=== PATIENT | female | born 1950 | race Caucasian/White ===

== ENCOUNTER 2025-04-28 11:55 | Inpatient (IN) | payer MEDICARE, OTHER ==
[~2025-04-28] VITALS: Ht 167.6 cm; Wt 78.0 kg
[2025-04-28] VITALS (7 sets, daily range): BP systolic 115–146; BP diastolic 67–74; PULSE 63–86; RESP 17–20; TEMP 98.3; O2SAT 89
[~2025-04-28 11:55] MED LIST: AMLO5TAB16 PO; ASPI-10 PO; ATOR10TA70 PO; HYDR-3964 PO; LISI20TA28 PO; METF-436 PO; METO25TA6 PO
--- NOTE | 2025-04-28 12:00 | ELECTROCARDIOGRAPH REPORT ---
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 Fidel Diop Measurements Intervals [place] Rate: 164 P: 0 OK: 0 QRS: -42 QRSD: 92 T: 132 QT: 304 QTc: 502 Interpretive Statements Atrial fibrillation with rapid V-rate Ventricular premature complex Left anterior fascicular block Abnormal R-wave progression, late transition LVH with secondary repolarization abnormality Baseline wander in lead(s) V2 Electronically Signed On 04-29-2025 6:34:[address] Fidel Diop Please click the below link to view image of tracing.
[2025-04-28] MEDS: diltiazem 5mg/ml 5ml inj. IV ONE (12:07)
[2025-04-28] MEDS: ondansetron/PF 4mg/2ml inj IV ONE ×2 (12:23→15:14)
[2025-04-28 12:24] LABS: BASOPHILS % (AUTO) 0.2 % (0-1); EOSINOPHILS % (AUTO) 0 % (0-6); HEMATOCRIT 46.8 % (35.0-45.0); HEMOGLOBIN 15.3 g/dl (12.0-16.0); LYMPHOCYTES % (AUTO) 5.7 % (21-51); MEAN CORPUSCULAR HGB CONC 32.7 g/dL (33.0-36.5); MEAN CORPUSCULAR VOLUME 94.6 FL (78-98); MEAN PLATELET VOLUME 10.4 FL (7.4-10.4); MONOCYTES # (AUTO) 0.6 X10'3 (0-0.9); MONOCYTES % (AUTO) 3.2 % (2-12); NEUTROPHILS # (AUTO) 15.8 X10'3 (1.8-7.7); NEUTROPHILS % (AUTO) 90.9 % (42-75); PLATELET COUNT 264 X10'3 (140-440); RED BLOOD COUNT 4.95 X10'6 (4.20-5.60); RED CELL DISTRIBUTION WIDTH 13.4 % (11.5-14.5); WHITE BLOOD COUNT 17.4 X10'3 (4.5-11.0)
[2025-04-28] MEDS: diltiazem-NS 100mg/100ml 100 ML IV SCH ×2 (12:35→19:45)
[2025-04-28 12:36] LABS: APTT 25 SECONDS (22-32); INR 1.1 INR; PROTHROMBIN TIME 11.4 SECONDS (9.0-12.0)
[2025-04-28] MEDS: normal saline 1000ml 1,000 ML IV ONE (12:36)
[2025-04-28 13:16] LABS: ALANINE AMINOTRANSFERASE 26 U/L (12-78); ALBUMIN 3.8 G/DL (3.4-5.0); ALBUMIN/GLOBULIN RATIO 0.8 (1.1-1.5); ALKALINE PHOSPHATASE 97 IU/L (46-116); ANION GAP 21 (8-16); ASPARTATE AMINO TRANSFERASE 27 U/L (10-37); BILIRUBIN,TOTAL 0.9 MG/DL (0.1-1.0); BLOOD UREA NITROGEN 25 MG/DL (7-18); BUN/CREATININE RATIO 23.1 (10.0-20.0); CALCIUM 9.4 MG/DL (8.5-10.1); CHLORIDE 102 MMOL/L (99-107); CREATININE 1.08 MG/DL (0.40-0.90); SODIUM 140 MMOL/L (135-145); TOTAL CARBON DIOXIDE 16.9 MMOL/L (24-32); TOTAL PROTEIN 8.5 G/DL (6.4-8.2); eCRCL 42 ML/MIN; eGFR 49 ML/MIN
[2025-04-28 13:17] LABS: POTASSIUM 4.1 MMOL/L (3.5-5.1)
[2025-04-28 13:20] LABS: GLUCOSE 506 MG/DL (70-104)
--- NOTE | 2025-04-28 13:31 | RADIOLOGY REPORT ---
DI CHEST,SINGLE VIEW, HISTORY: dizziness COMPARISON: CHEST,SINGLE VIEW on DOS: 03/10/21, CHEST,SINGLE VIEW on DOS: 03/09/21, CHEST,SINGLE VIEW o n DOS: 03/08/21 CHEST,SINGLE VIEW on DOS: 03/10/21, CHEST,SINGLE VIEW on DOS: 03/09/21, CHEST,SINGLE VIEW on DOS: TECHNICAL DATA: 1 view of the chest was obtained. FINDINGS: Lines and tubes: None Cardiomediastinal silhouette: normal Pulmonary vasculature: normal Lung expansion: normal Lung airspace: normal Lung interstitium: normal Pleura: normal Pneumothorax: no Bones: Unremarkable Other: no IMPRESSION: No acute intrathoracic abnormality. Suboptimal technique limits evaluation.
[2025-04-28 15:37] LABS: BILIRUBIN,URINE NEGATIVE (Neg); CLARITY,URINE CLEAR (Clear); COLOR,URINE YELLOW (Yellow); GLUCOSE, URINE >=1000 mg/dl (Neg); KETONES,URINE 40 mg/dl (Neg); LEUKOCYTE ESTERASE ,URINE NEGATIVE (Neg); NITRITES, URINE NEGATIVE (Neg); OCCULT BLOOD,URINE TRACE-INTACT (Neg); PH,URINE 5.5 (4.8-8.0); PROTEIN,URINE 30 mg/dl (Neg); UROBILINOGEN,URINE 0.2 E.U/dL (0.2-1.0)
[2025-04-28 15:48] LABS: UA COLLECTION TYPE NON-SPECIFIED
[2025-04-28 15:54] LABS: AMORPHOUS URATES 1+; BACTERIA,URINE NONE SEEN /HPF (Neg); RBC,URINE 0-2 /HPF (0-2); SQUAMOUS EPITHELIAL CELL,UR FEW /LPF (FEW); WBC,URINE 0-4 /HPF (0-4)
[2025-04-28] MEDS: insulin regular, human 10 units/0.1 ml syringe IV ONE (16:04)
[2025-04-28] MEDS: CefTRIAXone 2gm/D5W 50ml BAG 50 ML IV STA (16:05)
--- NOTE | 2025-04-28 16:32 | Physician Documentation ---
History of Present Illness ~ Chief Complaint: Rapid Heartbeat Stated Complaint: DIZZINESS Time Seen by MD: 11:58 Primary Medical Doctor: NONE Mode of Arrival: EMS HPI Patient is here for generalized weakness and dizziness this morning. Her has been ill so she has not been able to go to the pharmacy to refill her meds. She has a history of a. fib and diabetes. No fever. +nausea but no abdominal pain. Denies chest pain. Medication Reconciliation Allergies: Coded Allergies: No Known Allergies (Unverified , 02/12/21) Scheduled Amlodipine Besylate (Amlodipine Besylate), 1 TAB PO BID, (Reported) Aspirin (Aspirin), 1 TAB PO DAILY, (Reported) Atorvastatin Calcium (Atorvastatin Calcium), 1 TAB PO DAILY, (Reported) Lisinopril (Lisinopril), 1 TAB PO DAILY, (Reported) Metformin Hcl (Metformin Hcl), 2 TAB PO BID, (Reported) Metoprolol Tartrate (Metoprolol Tartrate), 1 TAB PO BID, (Reported) Scheduled PRN Hydrocodone Bit/Acetaminophen (Hydrocodon-Acetaminophen 5-325), 1 TAB PO Q6H PRN for moderate or severe pain 4-10 Past Medical History Past Medical History: Atrial Fibrillation, Coronary Artery Disease, High Cholesterol, Hypertension, Myocardial Infarction, Diabetes Past Surgical History: coronary bypass surgery Smoking Status: Never smoker Drug Use: none Lives In: Home Physical Exam Vital Signs: Heart Rate: 98, Respiratory Rate: 24, BP: 159/81, Pulse Oximetry: 90, Weight: 78.000 Oxygen Flow Rate: 0 Physical Exam General: Awake and Alert, no acute distress. HEENT: Conjunctiva pink, Sclera clear, Mucus Membranes moist. Neck: Supple without masses and tenderness. Resp: Unlabored. Lungs clear to auscultation bilaterally. Heart: tachycardic and irregular. Abdomen: Soft and non tender no organomegaly Extremities: No cyanosis,clubbing or edema. Skin: Warm and Dry. Neuro: GCS 15; no focal deficits Progress Results/Orders Results/Orders Orders - TRINO RONDON MD Chest,Single View (04/28/25 11:58) Diltiazem-Ns 100mg/100ml (Cardizem-Ns 10 (04/28/25 12:20) Culture Blood (04/28/25 14:01) Lactic,2hr (04/28/25 15:49) Completed Orders - TRINO RONDON MD Electrocardiogram (04/28/25 ) Cbc/Diff (04/28/25 11:58) CMP (04/28/25 11:58) Hs Troponin I W Calculations (04/28/25 11:58) Chest,Single View (04/28/25 11:58) PTT (04/28/25 11:58) Pt Inr (04/28/25 11:58) Diltiazem Iv (Cardizem Iv 5mg/Ml Inj.) (04/28/25 12:00) Ondansetron Inj. (Zofran 4mg/2ml Vial) (04/28/25 12:20) Normal Saline 1000ml (Sodium Chloride 10 (04/28/25 12:20) Lacticsepsis (04/28/25 14:01) Ondansetron Inj. (Zofran 4mg/2ml Vial) (04/28/25 15:05) Ceftriaxone 2gm/D5w 50ml Bag (Rocephin 2 (04/28/25 15:31) Insulin Regular, Human (Humulin R 10 Uni (04/28/25 15:35) Ua W/Microscopic, Cult If Ind (04/28/25 14:55) Medications Received in ER Medications (Trade) Dose Ordered Sig/Jass Route PRN Reason Start Time Stop Time Status Last Admin Dose Admin (Cardizem IV 5mg/ ml inj.) 10 mg ONCE ONCE IV 04/28/25 12:00 04/28/25 12:01 DC 04/28/25 12:07 10 MG Diltiazem HCl 100 ml @ 5 mls/hr Q20H IV 04/28/25 12:20 04/28/25 12:35 5 MLS/HR (Zofran 4mg/2ml vial) 4 mg ONCE ONCE IV 04/28/25 12:20 04/28/25 12:21 DC 04/28/25 12:23 4 MG Sodium Chloride 1,000 ml @ 1,000 mls/hr ONCE ONCE IV 04/28/25 12:20 04/28/25 13:19 DC 04/28/25 12:36 1,000 MLS/HR (Zofran 4mg/2ml vial) 4 mg ONCE ONCE IV 04/28/25 15:05 04/28/25 15:06 DC 04/28/25 15:14 4 MG Ceftriaxone Sodium/Dextrose 50 ml @ 100 mls/hr ONCE STAT IV 04/28/25 15:31 04/28/25 16:00 DC 04/28/25 16:05 100 MLS/HR (HumuLIN R 10 units per 0.1 ML syringe) 10 units ONCE ONCE IV 04/28/25 15:35 04/28/25 15:36 DC 04/28/25 16:04 10 UNITS Vital Signs 04/28/25 04/28/25 04/28/25 04/28/25 11:58 12:07 12:35 12:45 Pulse 168 158 125 112 Resp 24 19 B/P (MAP) 168/121 168/127 181/82 191/92 (125) Pulse Ox 97 94 04/28/25 04/28/25 04/28/25 04/28/25 13:00 13:20 13:32 13:40 Pulse 124 103 123 Resp 25 B/P (MAP) 174/92 175/90 (118) 178/90 Pulse Ox 94 O2 Flow Rate 0 04/28/25 04/28/25 14:01 15:22 Pulse 106 98 Resp 28 24 B/P (MAP) 144/85 (104) 159/81 (107) Pulse Ox 93 90 Laboratory Tests Test 04/28/25 12:08 04/28/25 14:55 04/28/25 16:00 White Blood Count 17.4 H Red Blood Count 4.95 Hemoglobin 15.3 Hematocrit 46.8 H Mean Corpuscular Volume 94.6 Mean Corpuscular Hemoglobin 31.0 Mean Corpuscular Hemoglobin Concent 32.7 L Red Cell Distribution Width 13.4 Platelet Count 264 Mean Platelet Volume 10.4 Neutrophils (%) (Auto) 90.9 H Lymphocytes (%) (Auto) 5.7 L Monocytes (%) (Auto) 3.2 Eosinophils (%) (Auto) 0 Basophils (%) (Auto) 0.2 Neutrophils # (Auto) 15.8 H Lymphocytes # (Auto) 1.0 L Monocytes # (Auto) 0.6 Eosinophils # (Auto) 0.0 Basophils # (Auto) 0.0 CBC Comment Prothrombin Time 11.4 INR International Normalized Ratio 1.1 Activated Partial Thromboplast Time 25 Coagulation Comments Sodium Level 140 Potassium Level 4.1 Chloride Level 102 Carbon Dioxide Level 16.9 L Anion Gap 21 H Blood Urea Nitrogen 25 H Creatinine 1.08 H Estimated GFR/1.73 m2 49 BUN/Creatinine Ratio 23.1 H Glucose Level 506 *H Lactic Acid Level 3.3 H Calcium Level 9.4 Total Bilirubin 0.9 Aspartate Amino Transf (AST/SGOT) 27 Alanine Aminotransferase (ALT/SGPT) 26 Alkaline Phosphatase 97 Troponin I High Sensitivity 30 Total Protein 8.5 H Albumin 3.8 Globulin 4.7 H Albumin/Globulin Ratio 0.8 L Chemistry Comments Urine Specimen Description Non-specified Urine Color Yellow Urine Clarity Clear Urine pH 5.5 Urine Specific Warner 1.020 Urine Protein 30 H Urine Glucose (UA) >=1000 H Urine Ketones 40 H Urine Occult Blood Trace-intact Urine Nitrite Negative Urine Bilirubin Negative Urine Urobilinogen 0.2 Urine Leukocyte Esterase Negative Urine RBC 0-2 Urine WBC 0-4 Urine Squamous Epithelial Cells Few Urine Amorphous Urates 1+ Urine Bacteria None seen Urine Culture Indicated Not ind Volume Urine Centrifuged 10 ml Urine Comment Glucometer 404 *H EKG/XRAY/CT/US/VASC/MRI EKG : Intepreting Monitor?: Yes EKG Rate: 164 EKG: a fib, nonspecific ST T wave chg, QRS EKG Blocks: none Collison: normal Hypertrophy: LVH Medical Decision Making Findings Patient presents with a fib with RVR HR 160's. She was given diltiazem 10 mg bolus and started on an infusion. Her rate is under control. She was given 1 L bolus. She is hyperglycemic boarderline DKA bicarb 16.9 and Anion gap is 21. She was given 10 units of insulin IV. Chest x-ray is clear urinalysis does not show signs of infection. I suspect what happened as she has been taking her medications that caused hyperglycemia dehydration and AFib with RVR. Those things have stabilized in place she will be admitted. Departure Disposition: ADMITTED INPATIENT Admitted to Inpatient Unit: to hospitalist Admission Level of Care: Med/Surg with Tele Impression: Primary Impression: Rapid atrial fibrillation Additional Impressions: Hyperglycemia Dehydration Condition: Stable Referrals: NO PRIMARY CARE PROVIDER (PCP) Education Educated: Patient Educated regarding: diagnosis, treatment Signature Scribe Signature: no scribe Attestation: no scribe TRINO RONDON MD Apr 28, 2025 16:32
[2025-04-28] MEDS ORDERED: potassium Cl 20 mEq SR tablet PO PRN ×2 (16:55)
[2025-04-28] MEDS ORDERED: magnesium sulf-water 2g/50mL 50 ML IV PRN (16:55)
[2025-04-28] MEDS ORDERED: magnesium sulf-water 4G/100mL 100 ML IV PRN (16:55)
[2025-04-28] MEDS ORDERED: potassium Cl 40MEQ/1/2NS 520ml 520 ML IV PRN (16:55)
[2025-04-28] MEDS ORDERED: mag hydrox/Alum hydrox/simeth 30ml oral suspension PO PRN (16:55)
[2025-04-28] MEDS ORDERED: acetaminophen 325mg tablet PO PRN (16:55)
[2025-04-28] MEDS ORDERED: magnesium hydroxide 30ml (MOM) UD suspension PO PRN (16:55)
[2025-04-28] MEDS ORDERED: magnesium Cl slow-release 64mg tablet PO PRN (16:55)
[2025-04-28 17:58] LABS: ABG HCO3 20.8 mmol/L (21.0-28.0); ABG OXYGEN SATURATION 95.2 % (94.0-98.0); ABG PCO2 (T) 37.3 mmHg (32.0-45.0); ABG PH (T) 7.364 (7.350-7.450); ABG PO2 (T) 81.6 mmHg (83.0-108.0); ALLEN'S TEST POSITIVE; FCOHb 0.4 % (0.5-1.5); FHHb 4.8 % (0.0-5.0); FMetHb 0.1 % (0.0-1.5); FO2Hb 94.7 % (94.0-98.0); MODE NASAL CANNULA; PATIENT TEMPERATURE 37.2; TOTAL HEMOGLOBIN 14.9 G/dl (12.0-16.0)
[2025-04-28 18:04] LABS: OSMOLALITY 332 MOSM/K (280-300)
[2025-04-28 18:22] LABS: HEMOGLOBIN A1C 11.4 % (4.5-6.2)
--- NOTE | 2025-04-28 18:49 | HISTORY AND PHYSICAL-Residence ---
History & Physical Providers to Resident Creating Document: ALFREDO SMITH, RES ~ History of Present Illness Primary Medical Doctor: [facility]. Cloth Shrinker: Dr. Naik Reason for Admit\Complaint: Dizziness, nausea, vomiting History of Present Illness [facility]. Cloth Shrinker: Dr. Naik 75-year-old female patient with past medical history of diabetes mellitus, hypertension, dyslipidemia came to the hospital with chief complaint of dizziness, nausea, vomiting. The patient reports that she was feeling weird last night reason for which he decided to not eat dinner. After she woke up this morning she was having some dizziness, nausea with vomiting for five episodes, as the patient did not need she reports the vomit as a yellowish liquid. Associated to these symptoms she also was feeling some weakness stating that she was not able to get up. She also endorses that she was missing her medication for at least three months because she was not able to arrange her cotton picker medication which is normally delivered at home. Neither her nor her are able to drive to cotton picker her medications. The patient currently denies any chest pain, shortness of breath, palpitations, urinary or intestinal symptoms. Allergies: Coded Allergies: No Known Allergies (Unverified , 02/12/21) Home Medications Home Medications Active Hydrocodon-Acetaminophen 5-325 (Hydrocodone Bit/Acetaminophen) 1 Each Tablet 1 Tab PO Q6H PRN Reported Aspirin 325 Mg Tablet 1 Tab PO DAILY 30 Days Metoprolol Tartrate 25 Mg Tablet 1 Tab PO BID Atorvastatin Calcium 10 Mg Tablet 1 Tab PO DAILY Amlodipine Besylate 5 Mg Tablet 1 Tab PO BID Metformin Hcl 500 Mg Tablet 2 Tab PO BID Lisinopril 20 Mg Tablet 1 Tab PO DAILY Past Medical History Past Medical History Diabetes mellitus taking metformin, not being able to take for the last three months because of difficulty for picking up her medication. Hypertension taking amlodipine. Dyslipidemia taking atorvastatin. CAD S/CABG on 2020 currently on aspirin. Past Surgical History Surgical History Comment CAD S/P CABG in 2020. Two C-sections. Hysterectomy. 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 HEENT: Conjunctive are pink, sclerae clear, no icterus, pupil is equal in both sides, reactive to light, no ear discharge, no pharyngeal erythema or an edema. Neck: Supple, no JVD, no lymphadenopathy and thyromegaly. Chest: Equal air entry on both lungs, no additional sounds no rhonchi no wheezing at the moment. Cardiovascular: S1-S2 irregular rate and rhythm, no gallops, no rubs, no murmurs Abdomen: No visible peristalsis, Bowel sounds present on auscultation, soft, nontender, no guarding, no rigidity Extremities: No obvious deformities, no pitting edema bilaterally, capillary refill intact, peripheral pulsations are intact on both sides Central Nervous System: No focal neurological deficits, no motor or sensory weakness in all 4 extremities, could move all 4 extremities, 2+ deep tendon reflexes, negative Babinski. Musculoskeletal: No joint swelling, deformities, inflammations, and no scoliosis and back tenderness Skin: Warm and dry, presence of signs from scratching in her back, redness at the level of the sacrum. Diagnostic Data Last Recorded Lab Results: 04/28/25 1208 04/28/25 1208 Diagnostic Data: Laboratory Tests Test 04/28/25 12:08 Prothrombin Time 11.4 SECONDS (9.0-12.0) INR International Normalized Ratio 1.1 INR Activated Partial Thromboplast Time 25 SECONDS (22-32) Coagulation Comments Advance Care Planning Advanced Care plannin - 30 Minutes (I spent a total of 17 minutes on reviewing various resuscitative measures/ACP with the patient at the time of admission. The patient has decided on a full code status.) Additional Plan Assessment and plan: 75-year-old female patient came to the hospital with chief complaint of weakness, nausea and vomiting. Diabetic ketoacidosis: Metabolic acidosis with elevated anion gap: Leukocytosis: The patient came to the hospital with chief complaint of weakness, nausea and vomiting. Glucose levels 506, hemoglobin A1c 11.4. WBC 17.4 likely reactive. Urinalysis positive for ketones. Bicarb around 16.9. The patient was missing medication for her diabetes because of difficulty for picking up her medication. Ringer lactate at 100 mL/hour. Hyperglycemia/hypoglycemia protocol in place. Lantus 16 units HS. Medium dose sliding scale short-acting insulin on place. 75 carb controlled diet. Ondansetron 4 mg IV q.4h PRN for nausea. New AFib with RVR: Chads Vasc score: 4 Upon arrival to the hospital the patient was evidenced with heart rate of 160s. EKG: Irregular rhythm, absence of P waves. Left axis deviation. Atrial fibrillation with heart rate over 164. Follow-up echocardiogram. The patient is currently on Cardizem drip. Given one dose of metoprolol succinate 25 mg. Decreased rate of Cardizem drip to 2.5 mL/hour. Cardizem drip to be stopped within 2 hours. Eliquis 5 mg b.i.d. in due to creatinine less than 1.5, age less than 80 and weight >60 kg Acute kidney injury likely secondary to renal tubular stasis: Creatinine 1.08, GFR 49, BUN/creatinine ratio 23.1. Follow-up urine lytes. Ringer lactate at 100 mL/hour. Hypertension: Current blood pressure within reference range. Starting metoprolol succinate 25 mg daily. Dyslipidemia: Follow-up lipid panel. We will continue atorvastatin after med reconciliation. Code status: Full code DVT prophylaxis: The patient is currently on Eliquis. Analgesia/sedation: None Line/tube: PIV GI prophylaxis: Protonix Nutrition: 75 carb controlled diet PT: Ordered Prognosis: Guarded Disposition: The patient will be admitted to PCU with telemetry. Alfredo Lamb Internal Medicine Resident [facility] Date of Service: Apr 28, 2025 Billing Provider: THOMAS SRINIVASAN MD Common Visit Codes: [id number] INP/OBS CARE (HIGH) Secondary Visit Codes: [id number] CARE PLAN 30 MINUTES ALFREDO SMITH, RES Apr 28, 2025 18:49 THOMAS SRINIVASAN MD Apr 30, 2025 21:35
[2025-04-28] MEDS ORDERED: dextrose 50%-water 50ml dispensing syringe IV PRN ×2 (18:55)
[2025-04-28] MEDS ORDERED: glucagon, human recombinant 1mg kit SUBCUT PRN (18:55)
[2025-04-28] MEDS ORDERED: DEXTROSE 15 GM of carb/4 tabs (each vial/BOTTLE has 4 tablets) PO PRN ×2 (18:55)
[2025-04-28 19:02] LABS: THYROID STIMULATING HORMONE 3.49 ulU/ml (0.34-4.50)
[2025-04-28] MEDS: docusate sod 100mg capsule PO SCH (19:17)
[2025-04-28] MEDS: K and/or MAG REPLACEMENT MC SCH (19:17)
[2025-04-28 19:42] LABS: CHOL/HDL RATIO 3.4 (0.00-4.99); CHOLESTEROL 182 MG/DL (0-200); HDL CHOLESTEROL 53 MG/DL (35-60); LDL CHOLESTEROL 98 MG/DL (50-100); TRIGLYCERIDES 122 MG/DL (20-135)
[2025-04-28] MEDS: apixaban 5mg tablet PO SCH (19:44)
[2025-04-28] MEDS: metoprolol succinate 25mg (24-HOUR) SR. Tablet PO SCH (19:44)
[2025-04-28] MEDS: ringers solution, lacted 1,000 ML IV SCH (19:48)
[2025-04-28] MEDS: insulin glargine (Lantus) pen - multi-dose SQ SCH (21:32)
[2025-04-28] MEDS: INSULIN LISPRO 100 UNIT/ML INSULN.PEN MULTI-DOSE SQ SCH (21:33)
[2025-04-29] VITALS (14 sets, daily range): BP systolic 107–136; BP diastolic 60–95; PULSE 68–100; RESP 16–24; TEMP 97.1–97.7; O2SAT 93–98
[2025-04-29 05:27] LABS: BASOPHILS # (AUTO) 0.1 X10'3 (0-0.2); BASOPHILS % (AUTO) 0.6 % (0-1); EOSINOPHILS % (AUTO) 0 % (0-6); HEMATOCRIT 41.7 % (35.0-45.0); HEMOGLOBIN 13.5 g/dl (12.0-16.0); LYMPHOCYTES # (AUTO) 1.6 X10'3 (1.1-4.8); LYMPHOCYTES % (AUTO) 10.3 % (21-51); MEAN CORPUSCULAR HEMOGLOBIN 30.6 PG (27.0-31.0); MEAN CORPUSCULAR HGB CONC 32.3 g/dL (33.0-36.5); MEAN CORPUSCULAR VOLUME 94.5 FL (78-98); MEAN PLATELET VOLUME 9.9 FL (7.4-10.4); MONOCYTES # (AUTO) 1.1 X10'3 (0-0.9); MONOCYTES % (AUTO) 7.3 % (2-12); NEUTROPHILS # (AUTO) 12.6 X10'3 (1.8-7.7); NEUTROPHILS % (AUTO) 81.8 % (42-75); PLATELET COUNT 250 X10'3 (140-440); RED BLOOD COUNT 4.41 X10'6 (4.20-5.60); RED CELL DISTRIBUTION WIDTH 13.3 % (11.5-14.5); WHITE BLOOD COUNT 15.4 X10'3 (4.5-11.0)
[2025-04-29 05:43] LABS: ALANINE AMINOTRANSFERASE 35 U/L (12-78); ALBUMIN 3.2 G/DL (3.4-5.0); ALBUMIN/GLOBULIN RATIO 0.8 (1.1-1.5); ALKALINE PHOSPHATASE 96 IU/L (46-116); ANION GAP 13 (8-16); ASPARTATE AMINO TRANSFERASE 32 U/L (10-37); BILIRUBIN,TOTAL 0.6 MG/DL (0.1-1.0); BLOOD UREA NITROGEN 26 MG/DL (7-18); CALCIUM 8.5 MG/DL (8.5-10.1); CHLORIDE 106 MMOL/L (99-107); CREATININE 1.13 MG/DL (0.40-0.90); GLUCOSE 293 MG/DL (70-104); SODIUM 143 MMOL/L (135-145); TOTAL CARBON DIOXIDE 23.8 MMOL/L (24-32); TOTAL PROTEIN 7.3 G/DL (6.4-8.2); eCRCL 40 ML/MIN; eGFR 47 ML/MIN
[2025-04-29] MEDS: pantoprazole 40mg Tablet.DR PO SCH (08:27)
[2025-04-29 11:21] LABS: CHOL/HDL RATIO 3.4 (0.00-4.99); CHOLESTEROL 192 MG/DL (0-200); HDL CHOLESTEROL 57 MG/DL (35-60); LDL CHOLESTEROL 106 MG/DL (50-100); TRIGLYCERIDES 127 MG/DL (20-135)
--- NOTE | 2025-04-29 14:33 | VASCULAR REPORT ---
Indication: Dizziness Technique: Real-time ultrasound images of the neck vessels with chaudhari-scale, color and wave Doppler we re obtained. Comparison: None Findings: There is mild to moderate atherosclerotic plaque bilaterally. This is most pronounced in the left ca rotid bulb region. The following peak systolic velocities were recorded in cm/sec: Right internal carotid: 41 Right common carotid: 44 Right external carotid: 87 Right internal/common carotid ratio: 0.9 Left internal carotid: 73 Left common carotid: 55 Left external carotid: 73 Left internal/common carotid ratio: 1.5 Right vertebral artery: Patent with normal antegrade direction of flow. Left vertebral artery: Patent with normal antegrade direction of flow. Impression: 1. No hemodynamically significant stenosis by velocity criteria. 2. [id number]-[id number] atherosclerotic plaque most pronounced within the left carotid bulb.
--- NOTE | 2025-04-29 14:52 | PROGRESS NOTE- Residence ---
Progress Note - Resident Providers to CC Resident Creating Document: ALFREDO SMITH, DEMI ~ Antibiotic Timeout Antibiotic Ordered?: No Subjective The patient has been evaluated at the bedside. Patient reports improvement of nausea, vomiting and dizziness. Objective Vital Signs Date Time Temp Pulse Resp B/P (MAP) Pulse Ox O2 Delivery O2 Flow Rate FiO2 04/29/25 06:30 91 04/29/25 06:00 97.7 24 115/67 (83) 93 Nasal Cannula 3.0 Physical exam: General: Well alert, well oriented, not confused, not agitated, not in acute distress, well cooperated during the physical. HEENT: Conjunctive are pink, sclerae clear, no icterus, pupil is equal in both sides, reactive to light, no ear discharge, no pharyngeal erythema or an edema. Neck: Supple, no JVD, no lymphadenopathy and thyromegaly. Chest: Equal air entry on both lungs, no additional sounds no rhonchi no wheezing at the moment. Cardiovascular: S1-S2 irregular rate and rhythm, no gallops, no rubs, no murmurs Abdomen: No visible peristalsis, Bowel sounds present on auscultation, soft, nontender, no guarding, no rigidity Extremities: No obvious deformities, no pitting edema bilaterally, capillary refill intact, peripheral pulsations are intact on both sides Central Nervous System: No focal neurological deficits, no motor or sensory weakness in all 4 extremities, could move all 4 extremities, 2+ deep tendon reflexes, negative Babinski. Musculoskeletal: No joint swelling, deformities, inflammations, and no scoliosis and back tenderness Skin: Warm and dry, presence of signs from scratching in her back, redness at the level of the sacrum. Result Diagram: 04/29/25 0454 04/29/25 0454 Coagulation Studies Laboratory Tests Test 04/28/25 12:08 Prothrombin Time 11.4 SECONDS (9.0-12.0) INR International Normalized Ratio 1.1 INR Activated Partial Thromboplast Time 25 SECONDS (22-32) Coagulation Comments Assessment Assessment 75-year-old female patient came to the hospital with chief complaint of weakness, nausea and vomiting. Plan Plan Diabetic ketoacidosis: Metabolic acidosis with elevated anion gap: Leukocytosis: The patient came to the hospital with chief complaint of weakness, nausea and vomiting. Glucose levels 506, hemoglobin A1c 11.4. WBC 17.4 likely reactive. Urinalysis positive for ketones. Bicarb around 16.9. The patient was missing medication for her diabetes because of difficulty for picking up her medication. Ringer lactate at 100 mL/hour. Hyperglycemia/hypoglycemia protocol in place. Lantus 16 units HS. Medium dose sliding scale short-acting insulin on place. 75 carb controlled diet. Ondansetron 4 mg IV q.4h PRN for nausea. 04/29/2025: Glucose levels improved, anion gap close to normal, bicarb levels improved. Increase lantus 20 HS. continue sliding scale short acting insulin. Leukocytes levels trending down. order carotid ultrasound and ct scan of the head. New AFib with RVR: Chads Vasc score: 4 Upon arrival to the hospital the patient was evidenced with heart rate of 160s. EKG: Irregular rhythm, absence of P waves. Left axis deviation. Atrial fibrillation with heart rate over 164. Follow-up echocardiogram. The patient is currently on Cardizem drip. Given one dose of metoprolol succinate 25 mg. Decreased rate of Cardizem drip to 2.5 mL/hour. Cardizem drip to be stopped within 2 hours. Eliquis 5 mg b.i.d. in due to creatinine less than 1.5, age less than 80 and weight >60 kg 04/29/2025: HR within reference range. stopped cardizem drip. Metoprolol succinate 25 mg daily. Continue eliquis 5 mg B.I.D. Acute kidney injury likely secondary to renal tubular stasis: Creatinine 1.08, GFR 49, BUN/creatinine ratio 23.1. Follow-up urine lytes. Ringer lactate at 100 mL/hour. Hypertension: Current blood pressure within reference range. Starting metoprolol succinate 25 mg daily. Dyslipidemia: Follow-up lipid panel. We will continue atorvastatin after med reconciliation. Code status: Full code DVT prophylaxis: The patient is currently on Eliquis. Analgesia/sedation: None Line/tube: PIV GI prophylaxis: Protonix Nutrition: 75 carb controlled diet PT: Ordered Prognosis: Guarded Disposition: We will continue medical management. Anticipated discharge tomorrow. Alfredo Lamb Internal Medicine Resident [facility] Date of Service: Apr 29, 2025 Billing Provider: THOMAS SRINIVASAN MD Common Visit Codes: [id number] INP/OBS CARE(HIGH) ALFREDO SMITH, RES Apr 29, 2025 14:52 THOMAS SRINIVASAN MD Apr 30, 2025 21:34
[2025-04-29] MEDS: ondansetron/PF 4mg/2ml inj IV PRN (15:22)
--- NOTE | 2025-04-29 15:55 | RADIOLOGY REPORT ---
CT CT HEAD Indication: dizziness EXAM DATE: 04/29/2025 03:28 PM COMPARISON: None TECHNIQUE: CT of the head without intravenous contrast. RADIATION DOSE: CTDIvol: 59 mGy, DLP: 1075 mGy*cm FINDINGS: There is no intracranial hemorrhage. There is no extra-axial fluid, mass, mass effect or midline shif t. The ventricles are midline and normal in size. Basilar cisterns are patent. There are iakz-go-itiy rate periventricular and subcortical white matter chronic microvascular ischemic changes. Mild globa l cerebral volume loss. The paranasal sinuses and mastoids are well-pneumatized. Imaged portion of the orbits are unremarkabl e. IMPRESSION: 1. No intracranial hemorrhage or mass effect. Bxut-vq-bhtydicz chronic 2. Microvascular ischemic changes. 3. Mild global cerebral volume loss.
[2025-04-29] MEDS: INSULIN LISPRO 100 UNIT/ML INSULN.PEN MULTI-DOSE SQ SCH (17:47)
--- NOTE | 2025-04-29 18:42 | CARDIOLOGY REPORT ---
APPROVED REPORT EXAM: Comprehensive 2D, Doppler, and color-flow Echocardiogram. Patient Location: 3028 Blood Pressure: 128/69 mmHg Heart Rate: 77 bpm Indications Arrhythmia Dizziness HX of Coronary Artery DIsease STEMI CABG x 4 Atrial Fibrillation Hypertension Diabetes SALES EXEC: Syeda Naik MD [employer] ECHO/RM: 02/14/21, [facility], HD, EF: 55-60; Steven/MR 2D Dimensions LA Diam4.0 cm IVSd 1.0 (0.7-1.1cm) LVDd 4.5 cm PWd 1.1 (0.7-1.1cm) IVSs 1.5 (0.8-1.2cm) LVDs 3.1 (2.5-4.0cm) PWs 1.6 (0.8-1.2cm) LVOT Diameter 1.97 (1.8-2.4cm) LVEF(%) 57.6 (>50%) Ao Asc Diam.3.45 cm IVC 23.63 mmFS (%) 30.2 % SV 52.8 ml CO 5.2 L/min M-Mode Dimensions Aortic Root 3.48 (2.2-3.7cm) Aortic Cusp Exc 1.46 (1.5-2.0cm) MV EPSS 1.3 (<0.5cm) Aortic Valve AoV Peak Amari. 134.7 cm/s AoV VTI 20.2 cm AO Peak GR. 7.3 mmHg AO Mean GR. 4 mmHg LVOT VTI 13.45 cm LVOT Peak Amari. 77.5 cm/s STEPHANIE(VTI)/BSA 2.04 cm2/m2 STEPHANIE (VTI) 2.04 cm2 AI P 1/2 Time 616 ms Tricuspid Valve TR P. Velocity 351 cm/s RAP ESTIMATE 10 mmHg TR Peak Gr. 49 mmHg RVSP 59 mmHg LEFT VENTRICLE Normal LV size and wall thickness. Overall systolic function is normal. LVEF is 55-60%. RIGHT VENTRICLE Right ventricle appears mildly dilated. ATRIA Left atrium is mildly dilated. AORTIC VALVE Trileaflet AV appears mildly sclerotic without stenosis. Trace insufficiency. MITRAL VALVE Mild mitral annular calcification without stenosis. Moderate regurgitation. TRICUSPID VALVE The tricuspid valve is normal in structure with mild regurgitation. PULMONIC VALVE The pulmonary valve is normal in structure with trace insufficiency. GREAT VESSELS The aortic root is normal in size. The ascending aorta is normal in size. IVC is dilated and collapse s less than 50% with inspiration. PERICARDIUM Normal pericardium. No effusion. Other Information Study Quality: Adequate Conclusion Normal LV size and wall thickness. Overall systolic function is normal. LVEF is 55-60%. Right ventricle appears mildly dilated. Left atrium is mildly dilated. Trileaflet AV appears mildly sclerotic without stenosis. Trace insufficiency. Mild mitral annular calcification without stenosis. Moderate regurgitation. The tricuspid valve is normal in structure with mild regurgitation. The pulmonary valve is normal in structure with trace insufficiency. Normal pericardium. No effusion.
[2025-04-29] MEDS: insulin glargine (Lantus) pen - multi-dose SQ SCH (21:50)
[2025-04-30] VITALS (9 sets, daily range): BP systolic 124–131; BP diastolic 43–95; PULSE 72–102; RESP 12–26; TEMP 97–97.8; O2SAT 91–98
[2025-04-30 07:11] LABS: BASOPHILS % (AUTO) 0.2 % (0-1); EOSINOPHILS % (AUTO) 0 % (0-6); HEMATOCRIT 42.4 % (35.0-45.0); LYMPHOCYTES # (AUTO) 2.4 X10'3 (1.1-4.8); LYMPHOCYTES % (AUTO) 13.6 % (21-51); MEAN CORPUSCULAR HEMOGLOBIN 30.7 PG (27.0-31.0); MEAN CORPUSCULAR HGB CONC 32.9 g/dL (33.0-36.5); MEAN CORPUSCULAR VOLUME 93.2 FL (78-98); MEAN PLATELET VOLUME 10.4 FL (7.4-10.4); MONOCYTES # (AUTO) 1.1 X10'3 (0-0.9); MONOCYTES % (AUTO) 6.5 % (2-12); NEUTROPHILS # (AUTO) 13.8 X10'3 (1.8-7.7); NEUTROPHILS % (AUTO) 79.7 % (42-75); PLATELET COUNT 229 X10'3 (140-440); RED BLOOD COUNT 4.55 X10'6 (4.20-5.60); WHITE BLOOD COUNT 17.4 X10'3 (4.5-11.0)
[2025-04-30 07:57] LABS: ALANINE AMINOTRANSFERASE 124 U/L (12-78); ALBUMIN 2.9 G/DL (3.4-5.0); ALBUMIN/GLOBULIN RATIO 0.8 (1.1-1.5); ALKALINE PHOSPHATASE 118 IU/L (46-116); ANION GAP 12 (8-16); ASPARTATE AMINO TRANSFERASE 117 U/L (10-37); BILIRUBIN,TOTAL 0.7 MG/DL (0.1-1.0); BLOOD UREA NITROGEN 33 MG/DL (7-18); BUN/CREATININE RATIO 39.8 (10.0-20.0); CALCIUM 8.3 MG/DL (8.5-10.1); CHLORIDE 106 MMOL/L (99-107); CREATININE 0.83 MG/DL (0.40-0.90); GLUCOSE 159 MG/DL (70-104); MAGNESIUM 1.9 MG/DL (1.5-2.4); POTASSIUM 3.9 MMOL/L (3.5-5.1); SODIUM 141 MMOL/L (135-145); TOTAL CARBON DIOXIDE 23.3 MMOL/L (24-32); TOTAL PROTEIN 6.4 G/DL (6.4-8.2); eCRCL 55 ML/MIN; eGFR 67 ML/MIN
[2025-04-30] MEDS: metoclopramide 5 mg/ml inj IV PRN (16:36)
--- NOTE | 2025-04-30 18:26 | PROGRESS NOTE- Residence ---
Progress Note - Resident Providers to CC Resident Creating Document: ALFREDO SMITH, DEMI ~ Antibiotic Timeout Antibiotic Ordered?: No Subjective The patient has been evaluated at the bedside. The patient is still reports nausea. Objective Vital Signs Date Time Temp Pulse Resp B/P (MAP) Pulse Ox O2 Delivery O2 Flow Rate FiO2 04/30/25 12:00 97.4 87 26 128/95 (106) 96 Room Air 04/29/25 06:00 3.0 Physical exam: General: Well alert, well oriented, not confused, not agitated, not in acute distress, well cooperated during the physical. HEENT: Conjunctive are pink, sclerae clear, no icterus, pupil is equal in both sides, reactive to light, no ear discharge, no pharyngeal erythema or an edema. Neck: Supple, no JVD, no lymphadenopathy and thyromegaly. Chest: Equal air entry on both lungs, no additional sounds no rhonchi no wheezing at the moment. Cardiovascular: S1-S2 irregular rate and rhythm, no gallops, no rubs, no murmurs Abdomen: No visible peristalsis, Bowel sounds present on auscultation, soft, nontender, no guarding, no rigidity Extremities: No obvious deformities, no pitting edema bilaterally, capillary refill intact, peripheral pulsations are intact on both sides Central Nervous System: No focal neurological deficits, no motor or sensory weakness in all 4 extremities, could move all 4 extremities, 2+ deep tendon reflexes, negative Babinski. Musculoskeletal: No joint swelling, deformities, inflammations, and no scoliosis and back tenderness Skin: Warm and dry, presence of signs from scratching in her back, redness at the level of the sacrum. Result Diagram: 04/30/25 0610 04/30/25 0610 Coagulation Studies Laboratory Tests Test 04/28/25 12:08 Prothrombin Time 11.4 SECONDS (9.0-12.0) INR International Normalized Ratio 1.1 INR Activated Partial Thromboplast Time 25 SECONDS (22-32) Coagulation Comments Assessment Assessment 75-year-old female patient came to the hospital with chief complaint of weakness, nausea and vomiting. Plan Plan Diabetic ketoacidosis: Metabolic acidosis with elevated anion gap: Leukocytosis: The patient came to the hospital with chief complaint of weakness, nausea and vomiting. Glucose levels 506, hemoglobin A1c 11.4. WBC 17.4 likely reactive. Urinalysis positive for ketones. Bicarb around 16.9. The patient was missing medication for her diabetes because of difficulty for picking up her medication. Ringer lactate at 100 mL/hour. Hyperglycemia/hypoglycemia protocol in place. Lantus 16 units HS. Medium dose sliding scale short-acting insulin on place. 75 carb controlled diet. Ondansetron 4 mg IV q.4h PRN for nausea. 04/29/2025: Glucose levels improved, anion gap close to normal, bicarb levels improved. Increase lantus 20 HS. continue sliding scale short acting insulin. Leukocytes levels trending down. order carotid ultrasound and ct scan of the head. 04/30/2025: Glucose levels improved, currently 159. Continue hyperglycemia/hypoglycemia protocol. Lantus 20 units HS. Continue sliding scale short-acting insulin. No intracranial hemorrhage or mass effect. [id number] chronic. Microvascular ischemic changes. Mild global cerebral volume loss. Carotid ultrasound: No hemodynamically significant stenosis by velocity criteria. [id number] atherosclerotic plaque most pronounced within the left carotid bulb. New AFib with RVR: Chads Vasc score: 4 Upon arrival to the hospital the patient was evidenced with heart rate of 160s. EKG: Irregular rhythm, absence of P waves. Left axis deviation. Atrial fibrillation with heart rate over 164. Follow-up echocardiogram. The patient is currently on Cardizem drip. Given one dose of metoprolol succinate 25 mg. Decreased rate of Cardizem drip to 2.5 mL/hour. Cardizem drip to be stopped within 2 hours. Eliquis 5 mg b.i.d. in due to creatinine less than 1.5, age less than 80 and weight >60 kg 04/29/2025: HR within reference range. stopped cardizem drip. Metoprolol succinate 25 mg daily. Continue eliquis 5 mg B.I.D. 04/30/2025: Heart rate well controlled. Current heart rate 87. Continue metoprolol succinate 25 mg daily. Continue Eliquis 5 mg b.i.d. Acute kidney injury likely secondary to renal tubular stasis-improved: Creatinine 1.08, GFR 49, BUN/creatinine ratio 23.1. Follow-up urine lytes. Ringer lactate at 100 mL/hour. 04/30/2025: Kidney function within reference range. We will discontinue ringer lactate. Hypertension: Current blood pressure within reference range. Metoprolol succinate 25 mg daily. Dyslipidemia: Triglycerides 122, cholesterol 182, LDL 98, HDL 53. Atorvastatin 10 mg daily. Code status: Full code DVT prophylaxis: The patient is currently on Eliquis. Analgesia/sedation: None Line/tube: PIV GI prophylaxis: Protonix Nutrition: 75 carb controlled diet PT: Ordered Prognosis: Guarded Disposition: We will continue medical management. Anticipated discharge tomorrow. Alfredo Lamb Internal Medicine Resident [facility] Date of Service: Apr 30, 2025 Billing Provider: THOMAS SRINIVASAN MD Common Visit Codes: [id number] INP/OBS CARE(HIGH) ALFREDO SMITH, RES Apr 30, 2025 18:26 THOMAS SRINIVASAN MD Apr 30, 2025 21:31
[2025-04-30] MEDS: atorvastatin 10mg tablet PO SCH (19:36)
[2025-05-01] VITALS (7 sets, daily range): BP systolic 136–144; BP diastolic 67–85; PULSE 91–117; RESP 14–29; TEMP 97.2–98.1; O2SAT 93–97
[2025-05-01 06:24] LABS: BASOPHILS # (AUTO) 0.1 X10'3 (0-0.2); BASOPHILS % (AUTO) 0.5 % (0-1); EOSINOPHILS % (AUTO) 0.2 % (0-6); HEMATOCRIT 43.8 % (35.0-45.0); HEMOGLOBIN 14.5 g/dl (12.0-16.0); LYMPHOCYTES # (AUTO) 1.9 X10'3 (1.1-4.8); LYMPHOCYTES % (AUTO) 14.1 % (21-51); MEAN CORPUSCULAR HEMOGLOBIN 30.8 PG (27.0-31.0); MEAN CORPUSCULAR HGB CONC 33.1 g/dL (33.0-36.5); MEAN CORPUSCULAR VOLUME 93.2 FL (78-98); MEAN PLATELET VOLUME 9.8 FL (7.4-10.4); MONOCYTES # (AUTO) 1.3 X10'3 (0-0.9); MONOCYTES % (AUTO) 9.8 % (2-12); NEUTROPHILS # (AUTO) 10.2 X10'3 (1.8-7.7); NEUTROPHILS % (AUTO) 75.4 % (42-75); PLATELET COUNT 252 X10'3 (140-440); RED BLOOD COUNT 4.71 X10'6 (4.20-5.60); RED CELL DISTRIBUTION WIDTH 13.3 % (11.5-14.5); WHITE BLOOD COUNT 13.6 X10'3 (4.5-11.0)
[2025-05-01 06:46] LABS: ALANINE AMINOTRANSFERASE 169 U/L (12-78); ALBUMIN/GLOBULIN RATIO 0.8 (1.1-1.5); ALKALINE PHOSPHATASE 123 IU/L (46-116); ANION GAP 9 (8-16); ASPARTATE AMINO TRANSFERASE 93 U/L (10-37); BILIRUBIN,TOTAL 0.8 MG/DL (0.1-1.0); BLOOD UREA NITROGEN 23 MG/DL (7-18); BUN/CREATININE RATIO 25.8 (10.0-20.0); CALCIUM 8.7 MG/DL (8.5-10.1); CHLORIDE 108 MMOL/L (99-107); CREATININE 0.89 MG/DL (0.40-0.90); GLUCOSE 93 MG/DL (70-104); POTASSIUM 3.4 MMOL/L (3.5-5.1); SODIUM 144 MMOL/L (135-145); TOTAL CARBON DIOXIDE 27.2 MMOL/L (24-32); TOTAL PROTEIN 6.9 G/DL (6.4-8.2); eCRCL 51 ML/MIN; eGFR 62 ML/MIN
[2025-05-01] MEDS ORDERED: METO-395 PO (14:47)
[2025-05-01] MEDS ORDERED: INSU100I8 SQ (14:47)
[2025-05-01] MEDS ORDERED: LANTUS SQ (14:47)
[2025-05-01] MEDS ORDERED: APIX5TAB3 PO (14:47)
[2025-05-01] MEDS ORDERED: potassium Cl 20 mEq SR tablet PO PRN (18:30)
[2025-05-01] MEDS: potassium Cl 20 mEq SR tablet PO PRN (18:34)
--- NOTE | 2025-05-01 19:13 | PROGRESS NOTE- Residence ---
Progress Note - Resident Providers to CC Resident Creating Document: KIM RAMIREZ RES ~ Antibiotic Timeout Antibiotic Ordered?: No Subjective Patient seen and examined at bedside. No acute overnight events noted. Awaiting MRI to be done Objective Vital Signs Date Time Temp Pulse Resp B/P (MAP) Pulse Ox O2 Delivery O2 Flow Rate FiO2 05/01/25 11:00 98.1 117 16 143/67 (92) 95 Room Air 04/29/25 06:00 3.0 Result Diagram: 05/01/25 0555 05/01/25 0555 General: Well alert, well oriented, not confused, not agitated, not in acute distress, well cooperated during the physical. HEENT: Conjunctive are pink, sclerae clear, no icterus, pupil is equal in both sides, reactive to light, no ear discharge, no pharyngeal erythema or an edema. Neck: Supple, no JVD, no lymphadenopathy and thyromegaly. Chest: Equal air entry on both lungs, no additional sounds no rhonchi no wheezing at the moment. Cardiovascular: S1-S2 irregular rate and rhythm, no gallops, no rubs, no murmurs Abdomen: No visible peristalsis, Bowel sounds present on auscultation, soft, nontender, no guarding, no rigidity Extremities: No obvious deformities, no pitting edema bilaterally, capillary refill intact, peripheral pulsations are intact on both sides Central Nervous System: No focal neurological deficits, no motor or sensory weakness in all 4 extremities, could move all 4 extremities, 2+ deep tendon reflexes, negative Babinski. Musculoskeletal: No joint swelling, deformities, inflammations, and no scoliosis and back tenderness Skin: Warm and dry, presence of signs from scratching in her back, redness at the level of the sacrum. Coagulation Studies Laboratory Tests Test 04/28/25 12:08 Prothrombin Time 11.4 SECONDS (9.0-12.0) INR International Normalized Ratio 1.1 INR Activated Partial Thromboplast Time 25 SECONDS (22-32) Coagulation Comments Assessment Assessment 75-year-old female patient came to the hospital with chief complaint of weakness, nausea and vomiting. Plan Plan Diabetic ketoacidosis: Resolved Metabolic acidosis with elevated anion gap: Gap closed Leukocytosis: On hypoglycemia protocol New AFib with RVR: Chads Vasc score: 4 Heart rate controlled, continue metoprolol succinate 25 mg daily. Continue Eliquis 5 mg b.i.d. Acute kidney injury likely secondary to renal tubular stasis-improved: Resolved Hypertension: Current blood pressure within reference range. Metoprolol succinate 25 mg daily. Dyslipidemia: Triglycerides 122, cholesterol 182, LDL 98, HDL 53. Atorvastatin 10 mg daily. Code status: Full code DVT prophylaxis: The patient is currently on Eliquis. Analgesia/sedation: None Line/tube: PIV GI prophylaxis: Protonix Nutrition: 75 carb controlled diet PT: Ordered Prognosis: Guarded Disposition: Continue medical management. Awaiting MRI report, if no significant findings can be discharged in a.m.. Date of Service: May 01, 2025 Billing Provider: THOMAS SRINIVASAN MD Common Visit Codes: [id number] INP/OBS CARE(HIGH) KIM RAMIREZ, RES May 01, 2025 19:13 THOMAS SRINIVASAN MD May 02, 2025 07:09
[2025-05-02 02:00] VITALS: BP 148/100; PULSE 91; RESP 25; TEMP 97.5; O2SAT 97
[2025-05-02 06:00] VITALS: BP 164/97; PULSE 107; RESP 26; TEMP 97.4; O2SAT 96
[2025-05-02 06:08] LABS: BASOPHILS % (AUTO) 0.1 % (0-1); EOSINOPHILS # (AUTO) 0.1 X10'3 (0-0.9); EOSINOPHILS % (AUTO) 0.7 % (0-6); HEMOGLOBIN 14.3 g/dl (12.0-16.0); LYMPHOCYTES # (AUTO) 1.9 X10'3 (1.1-4.8); LYMPHOCYTES % (AUTO) 16.3 % (21-51); MEAN CORPUSCULAR HGB CONC 33.4 g/dL (33.0-36.5); MEAN CORPUSCULAR VOLUME 92.8 FL (78-98); MEAN PLATELET VOLUME 10.5 FL (7.4-10.4); MONOCYTES # (AUTO) 1.3 X10'3 (0-0.9); MONOCYTES % (AUTO) 11.2 % (2-12); NEUTROPHILS # (AUTO) 8.3 X10'3 (1.8-7.7); NEUTROPHILS % (AUTO) 71.7 % (42-75); PLATELET COUNT 240 X10'3 (140-440); RED BLOOD COUNT 4.63 X10'6 (4.20-5.60); RED CELL DISTRIBUTION WIDTH 13.1 % (11.5-14.5); WHITE BLOOD COUNT 11.6 X10'3 (4.5-11.0)
[2025-05-02 06:21] LABS: ALANINE AMINOTRANSFERASE 127 U/L (12-78); ALBUMIN/GLOBULIN RATIO 0.8 (1.1-1.5); ALKALINE PHOSPHATASE 121 IU/L (46-116); ANION GAP 8 (8-16); ASPARTATE AMINO TRANSFERASE 48 U/L (10-37); BLOOD UREA NITROGEN 19 MG/DL (7-18); BUN/CREATININE RATIO 22.4 (10.0-20.0); CALCIUM 8.8 MG/DL (8.5-10.1); CHLORIDE 106 MMOL/L (99-107); CREATININE 0.85 MG/DL (0.40-0.90); GLUCOSE 119 MG/DL (70-104); MAGNESIUM 1.9 MG/DL (1.5-2.4); POTASSIUM 3.7 MMOL/L (3.5-5.1); SODIUM 141 MMOL/L (135-145); eCRCL 54 ML/MIN; eGFR 65 ML/MIN
--- NOTE | 2025-05-02 07:41 | RADIOLOGY REPORT ---
CLINICAL INDICATION: Acute loss of consciousness. COMPARISON: CT CT HEAD on DOS: 04/29/25 TECHNIQUE: Multisequence multiplanar MRI images of the brain were obtained without contrast. FINDINGS: Artifact limits evaluation on some sequences. There is restricted diffusion involving the cerebellar vermis measuring up to 1.4 cm in greatest dimension likely sequela of acute or subacute in farct. No mass or midline shift. Scattered areas of T2/FLAIR hyperintense signal in the periventricul ar and subcortical white matter are nonspecific, but most likely sequelae of chronic small vessel isc hemic disease. Ventricles and sulci are within normal limits for age. Basal cisterns are patent. Cere bellum, brainstem, and midline structures are within normal limits. Paranasal sinuses are clear. Orbi ts are grossly unremarkable. IMPRESSION: 1. Small focal area of restricted diffusion in the cerebellar vermis measuring up to 1.4 cm. Likely a cute or subacute infarct. 2. Findings consistent with chronic small-vessel ischemic disease.
[2025-05-02 11:00] VITALS: BP 139/90; PULSE 118; RESP 22; TEMP 98.1; O2SAT 97
[2025-05-02] MEDS ORDERED: ATOR20TA66 PO ×2 (13:39→13:44)
[2025-05-02] MEDS ORDERED: LANTUS SQ (13:44)
[2025-05-02] MEDS ORDERED: INSU100I8 SQ (13:44)
[2025-05-02] MEDS ORDERED: LISI20TA28 PO (13:44)
[2025-05-02] MEDS ORDERED: METO-395 PO (13:44)
[2025-05-02] MEDS ORDERED: APIX5TAB3 PO (13:44)
--- NOTE | 2025-05-02 15:14 | [facility] CONSULT REPORT ---
[facility] Procedure Note [facility] Procedure Note Consult [facility] Note # Demographics Consult Type: Acute Stroke Level 2 (4.5-24 hrs) Patient Location: Inpatient First Name: Radha Last Name: Cooper Date of : 1950 Age: 75 Gender: Female Facility: [facility] Time of Initial Page (): 05/02/2025 12:02 Time of Return Call ( Time): 05/02/2025 12:02 # HPI History: LKN-6 days ago Patient is currently admitted for an episode of nausea and vomiting and loss of balance. She has been admitted since then and her work up including brain MRI showed ischemic stroke. She was also diagnosed with new onset A-fib. # Scores Level of Consciousness 1a: [0] = Alert; keenly responsive LOC Questions 1b: [0] = Answers both questions correctly LOC Commands 1c: [0] = Performs both tasks correctly Best Gaze 2: [0] = Normal Visual 3: [0] = No visual loss Facial Palsy 4: [0] = Normal symmetrical movements Motor Arm Left 5a: [0] = No drift Motor Arm Right 5b: [0] = No drift Motor Leg Left 6a: [0] = No drift Motor Leg Right 6b: [0] = No drift Limb Ataxia 7: [0] = Absent Sensory 8: [0] = Normal Best Language 9: [0] = No aphasia Dysarthria 10: [0] = Normal Extinction and Inattention 11: [0] = No abnormality NIHSS Total: 0 # Assessment Impression: - Ischemic Stroke (Subacute) Brain MRI showed ischemic stroke; ECHO completed. New onset A-fib and was started on NOAC. # Plan Thrombolytic/Intervention: NOT IV Thrombolysis or IA Intervention candidate Thrombolytic Exclusion: > 4.5 hours Intraarterial Exclusion: - no large vessel occlusion (LVO) Labs: - hemoglobin A1c - lipid panel - comprehensive metabolic panel - CBC Therapy/Evaluation: - PT/OT evaluation Medication: - start statin with goal of LDL < 70 - anticoagulation with NOAC Other: - If patient has any neurological deterioration please call me back immediately - LDL < 70 - telemetry monitoring - neurology referral as outpatient - I have discussed my recommendations with the referring provider # Logistics Attestation of consult completion: The patient is located at: [facility]. Facility staff participated in the visit. I performed this telemedicine visit from my offsite office utilizing interactive 2 way audio and visual telecommunication technology. Total time spent in telemedicine encounter: I spent 10 minutes reviewing clinical data and/or imaging, obtaining history, examining the patient, communicating with the onsite care team, and in preparation of this report. # Demographics First Name: [facility] Facility: [facility] Neuro Consult Order placed for: Yes JEREMIE HOGAN MD May 02, 2025 15:14
--- NOTE | 2025-05-02 18:58 | DISCHARGE SUMMARY-Residence ---
Discharge Summary Providers to CC Resident Creating Document: SUAD SMITH, RES ~ Discharge Summary Admission Diagnosis: Palpitations Hospital Course DATE OF ADMISSION: 04/28/2025 DATE OF DISCHARGE: 05/02/2025 Discharge Diagnosis\Comment: Diabetic ketoacidosis: Resolved Metabolic acidosis with elevated anion gap: Gap closed Leukocytosis-improved Acute ischemic stroke: Present on admission. New AFib with RVR Chads Vasc score: 4 Acute kidney injury likely secondary to renal tubular stasis-improved Hypertension Dyslipidemia Operations\Procedures: None Consultants: Neurology Complications: None Condition on DC: Stable New Medications: Atorvastatin Calcium (Atorvastatin Calcium) 20 Mg Tablet 40 MG PO DAILY for 30 Days, #60 TAB Take two tablets of 20 mg daily. Apixaban (Eliquis) 5 Mg Tablet 5 MG PO BID for 30 Days, #60 TAB Insulin Glargine,Hum.rec.anlog* (Lantus*) 100 Unit/1 Ml Vial 20 UNIT SQ HS, #30 VIAL 1 Refill apply 20 Units at bedtime Insulin Lispro (Humalog) 100 Unit/Ml Insuln.pen 5 UNIT SQ ACHS, #30 UNIT Apply 5 units before meals Metoprolol Succinate (Metoprolol Succinate) 25 Mg Tab.sr.24h 25 MG PO DAILY, #30 TAB.SR Take one tablet daily. Continued Medications: Lisinopril (Lisinopril) 20 Mg Tablet 1 TAB PO DAILY for 30 Days, #30 (This prescription has been renewed) Discontinued Medications: Amlodipine Besylate (Amlodipine Besylate) 5 Mg Tablet 1 TAB PO BID Aspirin (Aspirin) 325 Mg Tablet 1 TAB PO DAILY for 30 Days, #30 TAB Atorvastatin Calcium (Atorvastatin Calcium) 10 Mg Tablet 1 TAB PO DAILY Metformin Hcl (Metformin Hcl) 500 Mg Tablet 2 TAB PO BID Metoprolol Tartrate (Metoprolol Tartrate) 25 Mg Tablet 1 TAB PO BID Discharge Summary: HPI: PCP: [facility]. [employer]: Dr. Naik 75-year-old female patient with past medical history of diabetes mellitus, hypertension, dyslipidemia came to the hospital with chief complaint of dizziness, nausea, vomiting. The patient reports that she was feeling weird last night reason for which he decided to not eat dinner. After she woke up this morning she was having some dizziness, nausea with vomiting for five episodes, as the patient did not need she reports the vomit as a yellowish liquid. Associated to these symptoms she also was feeling some weakness stating that she was not able to get up. 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 Neither her nor her are able to drive to crop picker her medications. The patient currently denies any chest pain, shortness of breath, palpitations, urinary or intestinal symptoms. Hospital course: 75-year-old male patient came to the hospital with chief complaint of nausea, dizziness and vomiting. Admitted with diabetic ketoacidosis, initially started on DKA protocol. Glucose levels were better control up in the next day. Transition to Lantus initially 16 units, due to elevated levels of glucose increased Lantus to 20 units. Glucose levels in better control upon the following day on 05/01/2025. At the same time the patient also had AFib with RVR, CHADS-VASc score was evaluated with a score of 4, patient was started on Eliquis, rate controlled initially with Cardizem drip, transition to metoprolol succinate 25 mg daily. Acute kidney injury evidenced during the admission, resolved with IV fluids. MRI of the head obtained due to persistence of nausea in suspicion of posterior stroke. MRI of the head showed: Small focal area of restricted diffusion in the cerebellar vermis measuring up to 1.4 cm. Likely acute or subacute infarct. Neurology was consulted who recommends medical management, recommends Eliquis and increased dose of atorvastatin to 40 mg daily in due to LDL of 106. And states that patient can be discharged home. The patient remained hemodynamically state physical therapy cleared the patient as home independent. The patient will be discharged home. Discharge course: The patient remained hemodynamically stable. The patient will be discharged home with home health with the following instructions: Call to the 911 or come to the emergency department if chest pain, shortness of breath, weakness, palpitations is evidenced. Take Eliquis one tablet of 5 mg every 12 hours. Take atorvastatin two tablets of 20 mg daily. Apply insulin glargine 20 units at bedtime. Apply insulin lispro 5 units before meals. Take metoprolol one tablet of 25 mg daily. Follow-up with your primary care physician within two weeks, tell him that you will require monitoring with a hemoglobin A1c. Physical exam: General: Well alert, well oriented, not confused, not agitated, not in acute distress, well cooperated during the physical. HEENT: Conjunctive are pink, sclerae clear, no icterus, pupil is equal in both sides, reactive to light, no ear discharge, no pharyngeal erythema or an edema. Neck: Supple, no JVD, no lymphadenopathy and thyromegaly. Chest: Equal air entry on both lungs, no additional sounds no rhonchi no wheezing at the moment. Cardiovascular: S1-S2 irregular rate and rhythm, no gallops, no rubs, no murmurs Abdomen: No visible peristalsis, Bowel sounds present on auscultation, soft, nontender, no guarding, no rigidity Extremities: No obvious deformities, no pitting edema bilaterally, capillary refill intact, peripheral pulsations are intact on both sides Central Nervous System: No focal neurological deficits, no motor or sensory weakness in all 4 extremities, could move all 4 extremities, 2+ deep tendon reflexes, negative Babinski. Musculoskeletal: No joint swelling, deformities, inflammations, and no scoliosis and back tenderness Skin: Warm and dry, presence of signs from scratching in her back, redness at the level of the sacrum. Vital Signs Date Time Temp Pulse Resp B/P (MAP) Pulse Ox O2 Delivery O2 Flow Rate FiO2 05/02/25 11:00 98.1 118 22 139/90 (106) 97 Room Air 04/29/25 06:00 3.0 Laboratory Tests Test 04/30/25 21:40 05/01/25 05:55 05/01/25 06:56 05/01/25 11:53 Glucometer 255 mg/dl 110 mg/dl 186 mg/dl White Blood Count 13.6 X10'3 Red Blood Count 4.71 X10'6 Hemoglobin 14.5 g/dl Hematocrit 43.8 % Mean Corpuscular Volume 93.2 FL Mean Corpuscular Hemoglobin 30.8 PG Mean Corpuscular Hemoglobin Concent 33.1 g/dL Red Cell Distribution Width 13.3 % Platelet Count 252 X10'3 Mean Platelet Volume 9.8 FL Neutrophils (%) (Auto) 75.4 % Lymphocytes (%) (Auto) 14.1 % Monocytes (%) (Auto) 9.8 % Eosinophils (%) (Auto) 0.2 % Basophils (%) (Auto) 0.5 % Neutrophils # (Auto) 10.2 X10'3 Lymphocytes # (Auto) 1.9 X10'3 Monocytes # (Auto) 1.3 X10'3 Eosinophils # (Auto) 0.0 X10'3 Basophils # (Auto) 0.1 X10'3 CBC Comment Sodium Level 144 MMOL/L Potassium Level 3.4 MMOL/L Chloride Level 108 MMOL/L Carbon Dioxide Level 27.2 MMOL/L Anion Gap 9 Blood Urea Nitrogen 23 MG/DL Creatinine 0.89 MG/DL Estimated GFR/1.73 m2 62 ML/MIN BUN/Creatinine Ratio 25.8 Glucose Level 93 MG/DL Calcium Level 8.7 MG/DL Magnesium Level 2.0 MG/DL Total Bilirubin 0.8 MG/DL Aspartate Amino Transf (AST/SGOT) 93 U/L Alanine Aminotransferase (ALT/SGPT) 169 U/L Alkaline Phosphatase 123 IU/L Total Protein 6.9 G/DL Albumin 3.0 G/DL Globulin 3.9 G/DL Albumin/Globulin Ratio 0.8 Chemistry Comments Test 05/01/25 16:51 05/01/25 20:49 05/02/25 04:21 05/02/25 07:49 Glucometer 234 mg/dl 237 mg/dl 137 mg/dl White Blood Count 11.6 X10'3 Red Blood Count 4.63 X10'6 Hemoglobin 14.3 g/dl Hematocrit 43.0 % Mean Corpuscular Volume 92.8 FL Mean Corpuscular Hemoglobin 31.0 PG Mean Corpuscular Hemoglobin Concent 33.4 g/dL Red Cell Distribution Width 13.1 % Platelet Count 240 X10'3 Mean Platelet Volume 10.5 FL Neutrophils (%) (Auto) 71.7 % Lymphocytes (%) (Auto) 16.3 % Monocytes (%) (Auto) 11.2 % Eosinophils (%) (Auto) 0.7 % Basophils (%) (Auto) 0.1 % Neutrophils # (Auto) 8.3 X10'3 Lymphocytes # (Auto) 1.9 X10'3 Monocytes # (Auto) 1.3 X10'3 Eosinophils # (Auto) 0.1 X10'3 Basophils # (Auto) 0.0 X10'3 CBC Comment Sodium Level 141 MMOL/L Potassium Level 3.7 MMOL/L Chloride Level 106 MMOL/L Carbon Dioxide Level 27.0 MMOL/L Anion Gap 8 Blood Urea Nitrogen 19 MG/DL Creatinine 0.85 MG/DL Estimated GFR/1.73 m2 65 ML/MIN BUN/Creatinine Ratio 22.4 Glucose Level 119 MG/DL Calcium Level 8.8 MG/DL Magnesium Level 1.9 MG/DL Total Bilirubin 1.0 MG/DL Aspartate Amino Transf (AST/SGOT) 48 U/L Alanine Aminotransferase (ALT/SGPT) 127 U/L Alkaline Phosphatase 121 IU/L Total Protein 7.0 G/DL Albumin 3.0 G/DL Globulin 4.0 G/DL Albumin/Globulin Ratio 0.8 Chemistry Comments Test 05/02/25 12:42 Glucometer 230 mg/dl *Problems/Diagnosis: (1) Diabetic ketoacidosis Status: Resolved (2) Ischemic stroke Status: Acute (3) Paroxysmal atrial fibrillation with rapid ventricular response Status: Acute Total Time Spent on D/C: > 30 Minutes Date of Service: May 02, 2025 Billing Provider: THOMAS SRINIVASAN MD Common Visit Codes: [id number] DISCH DAY >30min SUAD SMITH, RES May 02, 2025 18:57 THOMAS SRINIVASAN MD May 03, 2025 08:11
== END 2025-05-02 14:45 | disposition home health service (06) | DRG 64 ==
LOC: ER 11:56 → ED HOLD 16:57 → PCU 3S 22:00
PROVIDERS: ADMIT Internal Medicine; ATTEND Internal Medicine
DX: I63.9 Cerebral infarction, unspecified (principal); E11.10 Type 2 diabetes mellitus with ketoacidosis without coma; N17.0 Acute kidney failure with tubular necrosis; I48.0 Paroxysmal atrial fibrillation; I10 Essential (primary) hypertension; E86.0 Dehydration; I25.10 Atherosclerotic heart disease of native coronary artery without angina pectoris; Z20.822 Contact with and (suspected) exposure to COVID-19; E78.00 Pure hypercholesterolemia, unspecified; D72.829 Elevated white blood cell count, unspecified; Z95.1 Presence of aortocoronary bypass graft; I25.2 Old myocardial infarction; Z79.01 Long term (current) use of anticoagulants; Z79.84 Long term (current) use of oral hypoglycemic drugs
CPT/HCPCS: 36415; 36600; 70450; 70551; 71045; 80053; 80061; 81001; 82803; 82948; 83036; 83605; 83735; 83930; 84443; 84484; 85018; 85025; 85610; 85730; 87040; 87081; 87811; 93005; 93306; 93880; 96361; 96365; 96367; 96372; 96375; 96376; 97161; 97530; 99285; A6212; A6213; A6258; C1758; G0378; J0696; J1815; J2405; J2765; J3490; J7030; J7120